=== PATIENT | female | born 1960 | race American Indian/Alaskan Native ===

== ENCOUNTER 2018-11-02 00:56 | Inpatient (IN) | payer MEDICARE, BC ==
[2018-11-02 01:07] VITALS: BMI 42.0
--- NOTE | 2018-11-02 02:37 | ED PDOC ---
HPI: Chest Pain Time Seen by Provider: 11/02/18 01:21 Chief Complaint (Nursing): Chest Pain Chief Complaint (Provider): Chest Pain History Per: Patient History/Exam Limitations: no limitations Onset/Duration Of Symptoms: Days (a few) Additional Complaint(s): 57 years old female with a history of diabetes and hypertension presents to ER for evaluation of chest pain that has been occurring for the past few days. Patient reports associated shortness of breath and decrease exercise tolerance. She states she is unable to walk more than two blocks without becoming out of breath. Patient reports strong family history of cardiac disease. She states her mother with a heart attack in her 40s. Patient reports for the past month she has been having sweats in the middle of the night. PMD: Hannah Savage Photographic Lithographer: Dejan Mccauley Past Medical History Reviewed: Historical Data, Nursing Documentation, Vital Signs Vital Signs: Last Vital Signs Temp 98.5 F 11/02/18 01:14 Pulse 79 11/02/18 01:14 Resp 17 11/02/18 01:14 BP 172/92 H 11/02/18 01:14 Pulse Ox 95 11/02/18 01:14 - Medical History PMH: Diabetes, HTN, Hyperlipidemia - Surgical History Surgical History: No Surg Hx - Family History Family History: States: CAD - Home Medications Home Medications: Ambulatory Orders Medication Instructions Recorded Losartan Potassium 100 mg PO DAILY 11/02/18 MetFORMIN [glucoPHAGE] 1,000 mg PO BID 11/02/18 Simvastatin [Zocor] 20 mg PO DAILY 11/02/18 amLODIPine [Norvasc] 10 mg PO DAILY 11/02/18 - Allergies Allergies/Adverse Reactions: Allergies Allergy/AdvReac Type Severity Reaction Status Date / Time No Known Allergies Allergy Verified 08/04/16 11:05 Review of Systems ROS Statement: Except As Marked, All Systems Reviewed And Found Negative Constitutional: Positive for: Sweats Cardiovascular: Positive for: Chest Pain Respiratory: Positive for: Shortness of Breath Physical Exam - Reviewed Nursing Documentation Reviewed: Yes Vital Signs Reviewed: Yes - Physical Exam Appears: Positive for: Well, No Acute Distress Head Exam: Positive for: ATRAUMATIC, NORMOCEPHALIC Skin: Positive for: Normal Color, Warm, Dry Eye Exam: Positive for: Normal appearance, EOMI, PERRL Neck: Positive for: Normal, Painless ROM, Supple Cardiovascular/Chest: Positive for: Regular Rate, Rhythm. Negative for: Murmur Respiratory: Positive for: Normal Breath Sounds. Negative for: Wheezing Gastrointestinal/Abdominal: Positive for: Normal Exam, Soft. Negative for: Tenderness Back: Positive for: Normal Inspection. Negative for: L CVA Tenderness, R CVA Tenderness Extremity: Positive for: Normal ROM. Negative for: Pedal Edema, Deformity Neurological/Psych: Positive for: Awake, Alert, Oriented (x3) - Laboratory Results Result Diagrams: 11/02/18 02:58 11/02/18 02:58 - ECG ECG Rhythm: Positive for: Sinus Rhythm (with nonspecific ST abnormality) Rate: 85 O2 Sat by Pulse Oximetry: 95 (RA) Pulse Ox Interpretation: Normal Medical Decision Making Medical Decision Making: Time: 0119 A/P: 57 y/o female with a history of hypertension and diabetes presenting with chest pain --Patient has significant cardiac risk factors and significant family history of cardiac disease --Rule out ACS with serial troponins, will require continuous cardiac monitoring ----- Scribe Attestation: Documented by Katelin Spear, acting as a scribe for Brayan Ballard MD. Provider Scribe Attestation: All medical record entries made by the Scribe were at my direction and personally dictated by me. I have reviewed the chart and agree that the record accurately reflects my personal performance of the history, physical exam, medical decision making, and the department course for this patient. I have also personally directed, reviewed, and agree with the discharge instructions and disposition. Disposition - Clinical Impression Clinical Impression: Chest pain - Patient ED Disposition Is Patient to be Admitted: Yes - Disposition Disposition Time: 01:57 Condition: FAIR
[2018-11-02 03:06] LABS: INR 0.9; PROTHROMBIN TIME 10.4 Seconds (9.8-13.1)
[2018-11-02 03:08] LABS: PARTIAL THROMBOPLASTIN TIME 34.6 Seconds (25.6-37.1)
[2018-11-02 03:10] LABS: BLOOD UREA NITROGEN 9 mg/dl (7-17); CALCIUM 9.2 mg/dL (8.4-10.2); GFR NON-AFRICAN AMERICAN > 60
[2018-11-02 03:11] LABS: BASO % 0.5 % (0.0-2.0); EOS # 0.2 K/uL (0.0-0.7); EOS % 3.4 % (0.0-4.0); HEMOGLOBIN 12.3 g/dL (12.0-16.0); LYMPH % 61.5 % (20.0-40.0); MEAN CELL VOLUME 90.5 fl (81.0-99.0); MEAN CORPUSCULAR HEMOGLOBIN 30.9 pg (27.0-31.0); MEAN CORPUSCULAR HGB CONC 34.1 g/dL (33.0-37.0); MEAN PLATELET VOLUME 7.5 fl (7.2-11.7); MONO # 0.6 K/uL (0.0-0.8); MONO % 9.3 % (0.0-10.0); NEUT # 1.6 K/uL (1.8-7.0); NEUT % 25.3 % (50.0-75.0); NRBC % 0.1 % (0.0-0.0); RBC 3.98 Mil/uL (3.80-5.20); RED CELL DISTRIBUTION WIDTH 15.2 % (11.5-14.5); WHITE BLOOD COUNT 6.5 K/uL (4.8-10.8)
[2018-11-02 03:23] LABS: B-TYPE NATRIURETIC PEPTIDE 23.3 pg/ml (0-900)
--- NOTE | 2018-11-02 14:07 | RAD ---
Date of service: 11/02/2018 HISTORY: chest pain COMPARISON: Comparison made with prior chest radiograph 08/04/2016. TECHNIQUE: Chest PA and lateral views FINDINGS: LUNGS: There is a elliptical shaped masslike density seen in the left lateral mid to lower lung field overlying the left anterior 5th rib that measures approximately 2.1 x 1.2 cm. This focus is of uncertain etiology though a a parenchymal mass- neoplasm must be excluded. Recommend follow-up noncontrast CT scan of the chest for further evaluation. PLEURA: No significant pleural effusion identified. No pneumothorax apparent. CARDIOVASCULAR: No aortic atherosclerotic calcification present. Normal cardiac size. No pulmonary vascular congestion. OSSEOUS STRUCTURES: Mild multilevel degenerative spondylosis. VISUALIZED UPPER ABDOMEN: Normal. OTHER FINDINGS: None. IMPRESSION: There is a elliptical shaped masslike density seen in the left lateral mid to lower lung field overlying the left anterior 5th rib that measures approximately 2.1 x 1.2 cm. This focus is of uncertain etiology though a parenchymal mass- neoplasm must be excluded. Recommend follow-up noncontrast CT scan of the chest for further evaluation. Room Charge Nurse Rox informed these findings at approximately 2 p.m. with written down and read back verification.
--- NOTE | 2018-11-02 18:25 | CP.PCM.HP ---
History of Present Illness - History of Present Illness History of Present Illness: CC: Chest Pain History of Present Illness; A 57 years old female with a history of diabetes and hypertension presents to ER for evaluation of chest pain that has been occurring for the past few days. Patient reports associated shortness of breath and decrease exercise tolerance. She states she is unable to walk more than two blocks without becoming out of breath. Patient reports strong family history of cardiac disease. She states her mother with a heart attack in her 40s. Patient reports for the past month she has been having sweats in the middle of the night. Patient chronic smoker and chest x-ray for chest pain showed about 2 cm of left-sided lung mass. Present on Admission - Present on Admission Any Indicators Present on Admission: No Review of Systems - Review of Systems All systems: reviewed and no additional remarkable complaints except Review of Systems: As per HPI Past Patient History - Past Medical History & Family History Past Medical History?: Yes - Past Social History Smoking Status: Current Some Days Smoker Alcohol: Social Drugs: Denies - CARDIAC Hx Hypertension: Yes - PULMONARY Hx Respiratory Disorders: No - NEUROLOGICAL Hx Neurological Disorder: No - HEENT Hx HEENT Problems: No - RENAL Hx Chronic Kidney Disease: No - ENDOCRINE/METABOLIC Hx Endocrine Disorders: Yes Hx Diabetes Mellitus Type 2: Yes - HEMATOLOGICAL/ONCOLOGICAL Hx Blood Disorders: No - INTEGUMENTARY Hx Dermatological Problems: No - MUSCULOSKELETAL/RHEUMATOLOGICAL Hx Musculoskeletal Disorders: No Hx Falls: No - GASTROINTESTINAL Hx Gastrointestinal Disorders: No - GENITOURINARY/GYNECOLOGICAL Hx Genitourinary Disorders: No - PSYCHIATRIC Hx Psychophysiologic Disorder: No Hx Substance Use: No - SURGICAL HISTORY Hx Surgeries: Yes Hx Cholecystectomy: Yes Hx Hysterectomy: Yes Hx Orthopedic Surgery: Yes (right ankle surgery) Other/Comment: multiple cyst removal from right breast,rectum and vulva - ANESTHESIA Hx Anesthesia: Yes Hx Anesthesia Reactions: No Hx Malignant Hyperthermia: No Has any member of the family had a problem w/ anesthesia?: No Meds Allergies/Adverse Reactions: Allergies Allergy/AdvReac Type Severity Reaction Status Date / Time No Known Allergies Allergy Verified 08/04/16 11:05 Physical Exam - Constitutional Appears: Well, No Acute Distress - Head Exam Head Exam: ATRAUMATIC, NORMAL INSPECTION, NORMOCEPHALIC - Eye Exam Eye Exam: EOMI, Normal appearance, PERRL Pupil Exam: NORMAL ACCOMODATION, PERRL - ENT Exam ENT Exam: Mucous Membranes Moist, Normal Exam - Neck Exam Neck exam: Positive for: Normal Inspection - Respiratory Exam Respiratory Exam: Clear to Auscultation Bilateral, NORMAL BREATHING PATTERN - Cardiovascular Exam Cardiovascular Exam: REGULAR RHYTHM, +S1, +S2 - GI/Abdominal Exam GI & Abdominal Exam: Normal Bowel Sounds, Soft. absent: Tenderness - Extremities Exam Extremities exam: Positive for: normal capillary refill, normal inspection - Back Exam Back exam: NORMAL INSPECTION - Neurological Exam Neurological exam: Alert, CN II-XII Intact, Normal Gait, Oriented x3, Reflexes Normal - Psychiatric Exam Psychiatric exam: Normal Affect, Normal Mood - Skin Skin Exam: Dry, Intact, Normal Color, Warm Results - Vital Signs Recent Vital Signs: Last Vital Signs Temp 97.9 F 11/02/18 16:07 Pulse 80 11/02/18 16:07 Resp 18 11/02/18 16:07 BP 142/88 11/02/18 16:07 Pulse Ox 93 L 11/02/18 16:07 - Labs Result Diagrams: 11/02/18 02:58 11/03/18 13:30 Labs: Laboratory Results - last 24 hr 11/02/18 11/02/18 11/02/18 01:30 02:58 02:58 WBC 6.5 RBC 3.98 Hgb 12.3 Hct 36.1 MCV 90.5 MCH 30.9 MCHC 34.1 RDW 15.2 H Plt Count 182 MPV 7.5 Neut % (Auto) 25.3 L Lymph % (Auto) 61.5 H Swisher % (Auto) 9.3 Eos % (Auto) 3.4 Baso % (Auto) 0.5 Neut # (Auto) 1.6 L Lymph # (Auto) 4.0 Swisher # (Auto) 0.6 Eos # (Auto) 0.2 Baso # (Auto) 0.0 PT INR APTT D-Dimer, Quantitative 495 H Sodium 140 Potassium 3.5 L Chloride 103 Carbon Dioxide 27 Anion Gap 14 BUN 9 Creatinine 0.6 L Est GFR ( Amer) > 60 Est GFR (Non-Af Amer) > 60 Random Glucose 185 H Calcium 9.2 Troponin I < 0.0120 NT-Pro-B Natriuret Pep 23.3 11/02/18 11/02/18 02:58 10:00 WBC RBC Hgb Hct MCV MCH MCHC RDW Plt Count MPV Neut % (Auto) Lymph % (Auto) Swisher % (Auto) Eos % (Auto) Baso % (Auto) Neut # (Auto) Lymph # (Auto) Swisher # (Auto) Eos # (Auto) Baso # (Auto) PT 10.4 INR 0.9 APTT 34.6 D-Dimer, Quantitative Sodium Potassium Chloride Carbon Dioxide Anion Gap BUN Creatinine Est GFR ( Amer) Est GFR (Non-Af Amer) Random Glucose Calcium Troponin I < 0.0120 NT-Pro-B Natriuret Pep - Imaging and Cardiology Chest x-ray Status: Report reviewed by me Additional comment: Date of service: 11/02/2018 HISTORY: chest pain COMPARISON: Comparison made with prior chest radiograph 08/04/2016. TECHNIQUE: Chest PA and lateral views FINDINGS: LUNGS: There is a elliptical shaped masslike density seen in the left lateral mid to lower lung field overlying the left anterior 5th rib that measures approximately 2.1 x 1.2 cm. This focus is of uncertain etiology though a a parenchymal mass- neoplasm must be excluded. Recommend follow-up noncontrast CT scan of the chest for further evaluation. PLEURA: No significant pleural effusion identified. No pneumothorax apparent. CARDIOVASCULAR: No aortic atherosclerotic calcification present. Normal cardiac size. No pulmonary vascular congestion. OSSEOUS STRUCTURES: Mild multilevel degenerative spondylosis. VISUALIZED UPPER ABDOMEN: Normal. OTHER FINDINGS: None. IMPRESSION: There is a elliptical shaped masslike density seen in the left lateral mid to lower lung field overlying the left anterior 5th rib that measures approximately 2.1 x 1.2 cm. This focus is of uncertain etiology though a parenchymal mass- neoplasm must be excluded. Recommend follow-up noncontrast CT scan of the chest for further evaluation. Room Charge Nurse Rox informed these findings at approximately 2 p.m. with written down and read back verification. Assessment & Plan (1) Mass of left lung Status: Acute Priority: High (2) Chest pain Status: Acute Priority: Medium (3) Hypertension Status: Chronic (4) Dyslipidemia Status: Chronic - Assessment and Plan (Free Text) Plan: Serial troponin and EKG. Transthoracic echo Aspirin and beta-trish Manager Branch consult CT chest with IV contrast, and PE protocol as d-dimer is high. Continues telemetry monitoring
[2018-11-02] MEDS ORDERED: Sodium Chloride 0.9% 50 ML IV ONE (18:31)
[2018-11-02] MEDS ORDERED: Iodixanol 320 MG/ML 100 ML BOTTLE IV ONE (18:31)
--- NOTE | 2018-11-02 18:41 | CARD ---
APPROVED REPORT Date of service: 11/02/2018 EKG Measurement Heart [id number] <Conclusion> Normal sinus rhythm Possible Left atrial enlargement Otherwise normal ECG
[2018-11-02 19:53] LABS: BARBITURATES, UR NEGATIVE (NEGATIVE); BENZODIAZEPINES, UR NEGATIVE (NEGATIVE); OPIATES, UR NEGATIVE (NEGATIVE); PHENCYCLIDINE, UR NEGATIVE (NEGATIVE)
--- NOTE | 2018-11-03 01:38 | CON ---
DATE: 11/02/2018 REASON FOR CONSULTATION: Chest pain. HISTORY OF PRESENT ILLNESS: The patient is a 57-year-old -[place] female who is a smoker, has history of hypertension and diabetes mellitus, as well as hyperlipidemia, on Cozaar, Zocor, metformin, and amlodipine at home, presented because of chest pain. The patient described that she was awakened from sleep with chest discomfort, which was retrosternal, associated with diaphoresis. The patient stated that she underwent cardiac catheterization a few years ago at [facility] and was told it was okay. The patient has no recurrence of chest pain since her presentation. SOCIAL HISTORY: The patient is a smoker. CURRENT MEDICATIONS: Cozaar 100 mg once a day, metformin 1 gram twice a day, Lipitor 20 mg once a day, Norvasc 10 mg once a day. The patient did receive 162 mg of oral aspirin. REVIEW OF SYSTEMS: No nausea or vomiting. No fever or chills. No dizziness or syncope. PAST MEDICAL HISTORY: Hypertension, diabetes mellitus, hyperlipidemia. PHYSICAL EXAMINATION: GENERAL: The patient is a middle-aged female who does not appear to be in acute distress. VITAL SIGNS: Blood pressure 137/84, heart rate 79, temperature 98.4, respirations 18. HEENT: Normocephalic. NECK: No JVD. CHEST: Clear. HEART: S1 and S2 regular. EXTREMITIES: 1+ pitting edema. LABORATORY DATA: Hemoglobin and hematocrit 12.3 and 36.1. White count and platelet count are within normal limits. Today's SMA-7: Sodium 140, potassium 3.5, chloride 103, CO2 of 27, glucose 185, BUN 9, creatinine 0.6. Two sets of troponins are negative. PT, PTT, and INR are within normal limits. EKG revealed sinus rhythm with nonspecific ST-segment changes. Chest x-ray revealed normal cardiac silhouette with prominent bronchovascular markings. ASSESSMENT: 1. Chest pain, myocardial infarction is ruled out. 2. Hypertension and diabetes mellitus. 3. Hyperlipidemia. 4. Obesity. 5. Rule out underlying congestive heart failure. RECOMMENDATIONS: Continue current Cozaar 100 mg once a day, metformin 1 gram twice a day, Lipitor 20 mg once a day, Norvasc 10 mg once a day, aspirin 81 mg once a day, Plavix 75 mg once a day. Obtain an echocardiographic study, serum D-Dimer as well as urine for drug screen. The patient will eventually need a cardiac catheterization with the possibility of intervention. Seferino Best MD
--- NOTE | 2018-11-03 11:47 | CT ---
Date of service: 11/02/2018 PROCEDURE: CT Chest with contrast (Pulmonary Angiogram) HISTORY: R/O PE, and ? Left Chest Mass COMPARISON: Correlation made with chest radiograph obtained earlier same day. TECHNIQUE: Axial computed tomography images were obtained of the chest in the pulmonary arterial phase of enhancement. Coronal and sagittal reformatted images were created and reviewed. Intravenous contrast dose: 99 cc Visipaque 320 Radiation dose: Total exam DLP = 403.29 mGy-cm. This CT exam was performed using one or more of the following dose reduction techniques: Automated exposure control, adjustment of the mA and/or kV according to patient size, and/or use of iterative reconstruction technique. FINDINGS: Study is somewhat limited by suboptimal opacification of the pulmonary arteries and further limited by morbid obesity. PULMONARY ARTERIES: The visualized pulmonary trunk, right and left main, lobar, segmental and proximal subsegmental branches of the pulmonary arteries are well opacified with no definitive filling defects seen to suggest acute central pulmonary embolus. AORTA: No acute findings. No thoracic aortic aneurysm. No aortic atherosclerotic calcification or mural plaque present. LUNGS: There is an approximately 17.8 mm x 14 mm elliptical shaped soft tissue mass lesion with spiculated borders. This lesion could represent a primary neoplasm. Biopsy are recommended for further evaluation PLEURAL SPACES: Unremarkable. No effusion or pneumothorax. HEART: Heart is mildly enlarged. No significant pericardial effusion. LYMPH NODES: There are a few small nonspecific mediastinal lymph nodes present. No significant hilar adenopathy. Trachea midline and patent with no large central endoluminal lesions. Tiny hiatal hernia. BONES, CHEST WALL: Mild multilevel degenerative spondylosis of the thoracic spine OTHER FINDINGS: Cholecystectomy. IMPRESSION: Limited study. No evidence of acute central pulmonary embolus. 17 mm x 14 mm soft tissue mass lesion with spiculated borders left lower lobe; recommend follow-up biopsy as this lesion is highly suspicious for primary neoplasm.
[2018-11-03 13:59] LABS: BLOOD UREA NITROGEN 11 mg/dl (7-17); CALCIUM 9.4 mg/dL (8.4-10.2); GFR NON-AFRICAN AMERICAN > 60
--- NOTE | 2018-11-04 00:11 | CP.PCM.PN ---
Subjective - Date & Time of Evaluation Date of Evaluation: 11/03/18 Time of Evaluation: 19:25 - Subjective Subjective: Seen and examined at the bed side. No new complaint. Pending TTE result, and Lef lung mass biopsy by IR tomorrow. Patient is chronic smoker, and possible Malignancy. Denies fever or chills. Objective - Vital Signs/Intake and Output Vital Signs (last 24 hours): Temp Pulse Resp BP Pulse Ox 98.0 F 74 18 133/79 93 L 11/03/18 20:27 11/03/18 21:29 11/03/18 20:27 11/03/18 21:29 11/03/18 20:27 - Medications Medications: Current Medications Acetaminophen (Tylenol 325mg Tab) 650 mg PO Q6 PRN PRN Reason: Headache Last Admin: 11/03/18 13:37 Dose: 650 mg Amlodipine Besylate (Norvasc) 10 mg PO DAILY [facility] Last Admin: 11/03/18 08:31 Dose: 10 mg Aspirin (Aspirin Chewable) 81 mg PO DAILY [facility] Last Admin: 11/03/18 08:26 Dose: 81 mg Atorvastatin Calcium (Lipitor) 20 mg PO HS [facility] Last Admin: 11/03/18 21:29 Dose: 20 mg Losartan Potassium (Cozaar) 100 mg PO DAILY [facility] Last Admin: 11/03/18 08:29 Dose: 100 mg Metoprolol Tartrate (Lopressor) 25 mg PO Q12 [facility] Last Admin: 11/03/18 21:29 Dose: 25 mg - Labs Labs: 11/02/18 02:58 11/03/18 13:30 PT 10.4 Seconds (9.8-13.1) 11/02/18 02:58 INR 0.9 11/02/18 02:58 APTT 34.6 Seconds (25.6-37.1) 11/02/18 02:58 - Constitutional Appears: Well, No Acute Distress - Head Exam Head Exam: ATRAUMATIC, NORMAL INSPECTION, NORMOCEPHALIC - Eye Exam Eye Exam: EOMI, Normal appearance, PERRL Pupil Exam: NORMAL ACCOMODATION, PERRL - ENT Exam ENT Exam: Mucous Membranes Moist, Normal Exam - Neck Exam Neck Exam: Full ROM, Normal Inspection. absent: Lymphadenopathy - Respiratory Exam Respiratory Exam: Clear to Ausculation Bilateral, NORMAL BREATHING PATTERN - Cardiovascular Exam Cardiovascular Exam: REGULAR RHYTHM, +S1, +S2. absent: Murmur - GI/Abdominal Exam GI & Abdominal Exam: Soft, Normal Bowel Sounds. absent: Tenderness - Extremities Exam Extremities Exam: Full ROM, Normal Capillary Refill, Normal Inspection. absent: Joint Swelling, Pedal Edema - Back Exam Back Exam: NORMAL INSPECTION - Neurological Exam Neurological Exam: Alert, Awake, CN II-XII Intact, Normal Gait, Oriented x3 - Psychiatric Exam Psychiatric exam: Normal Affect, Normal Mood - Skin Skin Exam: Dry, Intact, Normal Color, Warm Assessment and Plan (1) Chest pain Status: Acute (2) Mass of left lung Status: Acute (3) Morbid obesity Status: Acute (4) Dyslipidemia Status: Chronic (5) Hypertension Status: Chronic - Assessment and Plan (Free Text) Plan: Pending TTE result CT guided lung bipsy by IR requested. C/W Current Care
--- NOTE | 2018-11-04 00:25 | PN ---
DATE: 11/03/2018 SUBJECTIVE: The patient denied any chest pain. No reported hemoptysis. PHYSICAL EXAMINATION: VITAL SIGNS: Blood pressure 151/94, heart rate 99, temperature 97.7, and respiration 18. HEENT: Normocephalic. CHEST: Clear. HEART: S1 and S2 regular. EXTREMITIES: No edema. LABORATORY DATA: Urine drug screen is negative. Today's SMA-7 was within normal limits except for a glucose of 193. Four sets of troponin are negative. Chest CT/angio, no evidence of acute central pulmonary embolus. A 17 mm x 14 mm soft tissue mass lesion with spiculated border, left lower lobe. ASSESSMENT: 1. Chest pain, myocardial infarction is ruled out. 2. Left lower lobe lung mass measuring 17 x 14 mm. 3. Hypertension. 4. Diabetes mellitus. 5. Hyperlipidemia. 6. Obesity. RECOMMENDATIONS: Continue current aspirin 81 mg once a day, Cozaar at 100 mg once daily, Lipitor 20 mg once a day, Lopressor 25 mg twice a day. Norvasc 10 mg once a day. We will discontinue Plavix. The patient will have pulmonary evaluation and will possibly be referred for lung biopsy, and for that reason, Plavix will be discontinued. The patient will also undergo echocardiographic study tomorrow. Seferino Best MD
[2018-11-04 08:04] VITALS: RESP 20
[2018-11-04 15:51] VITALS: BP 155/79; PULSE 99; TEMP 98.6; O2SAT 96
--- NOTE | 2018-11-04 18:17 | CARD ---
APPROVED REPORT Date of service: 11/04/2018 EXAM: Two-dimensional and M-mode echocardiogram with Doppler and color Doppler. Other Information Quality : GoodRhythm : NSR INDICATION Chest Pain 2D DIMENSIONS IVSd1.31 (0.7-1.1cm)LVDd5.25 (3.9-5.9cm) LVOT Diameter2.15 (1.8-2.4cm)PWd0.99 (0.7-1.1cm) IVSs1.32 (0.8-1.2cm)LVDs4.19 (2.5-4.0cm) FS (%) 20.1 %PWs1.00 (0.8-1.2cm) M-Mode DIMENSIONS Left Atrium (MM)4.41 (2.5-4.0cm)IVSd0.76 (0.7-1.1cm) Aortic Root2.88 (2.2-3.7cm)LVDd5.76 (4.0-5.6cm) Aortic Cusp Exc.1.79 (1.5-2.0cm)PWd1.06 (0.7-1.1cm) IVSs1.12 cmFS (%) 28 % LVDs4.15 (2.0-3.8cm)PWs1.26 cm Aortic Valve AoV Peak Ltodbeam935.3cm/sAoV VTI26.2cmAO Peak GR.8mmHg LVOT Peak Nsrrasfw49.9cm/sLVOT VTI20.72cmAO Mean GR.5mmHg GISELLA (VMAX)1.73dr9AJX (VTI)1.20cm2 Mitral Valve MV E Bdaxfshz80.7cm/sMV DECEL ECQI116stGJ A Aclaqjvl39.1cm/s MV DBJ46udM/A ratio0.9MVA (PHT)3.18cm2 TDI Lateral E' Peak V9.94cm/sMedial E' Peak V9.13cm/sE/Lateral E'7.9 E/Medial E'8.6 Tricuspid Valve TR Peak Zhltazrt658pz/sRAP JNZMNFDC34itAeJX Peak Gr.20mmHg EWTN00pdTj LEFT VENTRICLE The left ventricle is normal size. There is normal left ventricular wall thickness. The left ventricular systolic function is normal. The estimated ejection fraction is 55-60% No regional wall motion abnormalities noted.. Transmitral Doppler flow pattern is Grade I-abnormal relaxation pattern. No left ventricle thrombus noted on this study. There is no ventricular septal defect visualized. There is no left ventricular aneurysm. There is no mass noted in the left ventricle. RIGHT VENTRICLE The right ventricle is normal size. There is normal right ventricular wall thickness. The right ventricular systolic function is normal. ATRIA The left atrium is mildly dilated. The right atrium size is normal. The interatrial septum is intact with no evidence for an atrial septal defect. AORTIC VALVE The aortic valve is normal in structure. No aortic regurgitation is present. There is no aortic valvular stenosis. There is no aortic valvular vegetation. MITRAL VALVE The mitral valve is normal in structure. There is no evidence of mitral valve prolapse. There is no mitral valve stenosis. There is mild mitral valve regurgitation noted. TRICUSPID VALVE The tricuspid valve is normal in structure. There is mild tricuspid valve regurgitation noted. RVSP is calculated at 25 mm Hg. There is no tricuspid valve prolapse or vegetation. There is no tricuspid valve stenosis. PULMONIC VALVE The pulmonary valve is normal in structure. There is no pulmonic valvular regurgitation. There is no pulmonic valvular stenosis. GREAT VESSELS The aortic root is normal in size. The ascending aorta is normal in size. The pulmonary artery is normal. The IVC is normal in size and collapses >50% with inspiration. PERICARDIAL EFFUSION There is no pericardial effusion. There is no pleural effusion. <Conclusion> The estimated ejection fraction is 55-60% Transmitral Doppler flow pattern is Grade I-abnormal relaxation pattern. The left atrium is mildly dilated. There is mild mitral valve regurgitation noted. There is mild tricuspid valve regurgitation noted. RVSP is calculated at 25 mm Hg.
--- NOTE | 2018-11-04 22:04 | PN ---
DATE: 11/04/2018 FOLLOWUP SUBJECTIVE: The patient denies any chest pain. No reported hemoptysis. PHYSICAL EXAMINATION: VITAL SIGNS: Blood pressure 155/79, heart rate 99, temperature 98.6, and respiration 20. HEENT: Normocephalic. CHEST: Clear. HEART: S1 and S2, regular. ABDOMEN: Soft. EXTREMITIES: No edema. ASSESSMENT: 1. Chest pain, myocardial infarction is ruled out. 2. Left lower lobe lung mass, measuring 17 x 14 mm. 3. Hypertension and hyperlipidemia. 4. Diabetes mellitus. RECOMMENDATIONS: Continue current Cozaar 100 mg once daily, Lipitor 20 mg once daily, Lopressor 25 mg twice a day, Norvasc 10 mg once a day, aspirin is on hold in anticipation of lung biopsy. Seferino Best MD
--- NOTE | 2018-11-05 10:06 | CP.PCM.DIS ---
Provider - Provider Date of Admission: 11/04/18 00:06 Attending physician: Richard Tarango MD Consults: 11/02/18 03:58 Cardiology Consult Routine Comment: Consulting Provider: Dejan Mccauley Consulting Physician: Dejan Mccauley Reason for Consult: chest pain 11/03/18 11:57 Pulmonology Consult Routine Comment: Consulting Provider: Nickolas Arnold Consulting Physician: Nickolas Arnold Reason for Consult: nodule left mid lung Time Spent in preparation of Discharge (in minutes): 30 Diagnosis - Discharge Diagnosis (1) Mass of left lung Status: Acute Priority: High (2) Chest pain Status: Acute Priority: Medium (3) Hypertension Status: Chronic (4) Dyslipidemia Status: Chronic (5) Morbid obesity Status: Acute Priority: Medium Hospital Course - Lab Results Lab Results: Most Recent Lab Values WBC 6.5 K/uL (4.8-10.8) 11/02/18 02:58 RBC 3.98 Mil/uL (3.80-5.20) 11/02/18 02:58 Hgb 12.3 g/dL (12.0-16.0) 11/02/18 02:58 Hct 36.1 % (34.0-47.0) 11/02/18 02:58 MCV 90.5 fl (81.0-99.0) 11/02/18 02:58 MCH 30.9 pg (27.0-31.0) 11/02/18 02:58 MCHC 34.1 g/dL (33.0-37.0) 11/02/18 02:58 RDW 15.2 % (11.5-14.5) H 11/02/18 02:58 Plt Count 182 K/uL (130-400) 11/02/18 02:58 MPV 7.5 fl (7.2-11.7) 11/02/18 02:58 Neut % (Auto) 25.3 % (50.0-75.0) L 11/02/18 02:58 Lymph % (Auto) 61.5 % (20.0-40.0) H 11/02/18 02:58 [place] % (Auto) 9.3 % (0.0-10.0) 11/02/18 02:58 Eos % (Auto) 3.4 % (0.0-4.0) 11/02/18 02:58 Baso % (Auto) 0.5 % (0.0-2.0) 11/02/18 02:58 Neut # (Auto) 1.6 K/uL (1.8-7.0) L 11/02/18 02:58 Lymph # (Auto) 4.0 K/uL (1.0-4.3) 11/02/18 02:58 [place] # (Auto) 0.6 K/uL (0.0-0.8) 11/02/18 02:58 Eos # (Auto) 0.2 K/uL (0.0-0.7) 11/02/18 02:58 Baso # (Auto) 0.0 K/uL (0.0-0.2) 11/02/18 02:58 PT 10.4 Seconds (9.8-13.1) 11/02/18 02:58 INR 0.9 11/02/18 02:58 APTT 34.6 Seconds (25.6-37.1) 11/02/18 02:58 D-Dimer, Quantitative 495 ng/mlDDU (0-230) H 11/02/18 01:30 Sodium 138 mmol/l (132-148) 11/03/18 13:30 Potassium 4.3 MMOL/L (3.6-5.0) 11/03/18 13:30 Chloride 102 mmol/L (98-107) 11/03/18 13:30 Carbon Dioxide 25 mmol/L (22-30) 11/03/18 13:30 Anion Gap 15 (10-20) 11/03/18 13:30 BUN 11 mg/dl (7-17) 11/03/18 13:30 Creatinine 0.7 mg/dl (0.7-1.2) 11/03/18 13:30 Est GFR ( Amer) > 60 11/03/18 13:30 Est GFR (Non-Af Amer) > 60 11/03/18 13:30 Random Glucose 193 mg/dL (65-105) H 11/03/18 13:30 Calcium 9.4 mg/dL (8.4-10.2) 11/03/18 13:30 Troponin I < 0.0120 ng/mL (0.00-0.120) 11/03/18 05:21 NT-Pro-B Natriuret Pep 23.3 pg/ml (0-900) 11/02/18 02:58 Urine Opiates Screen Negative (NEGATIVE) 11/02/18 19:26 Urine Methadone Screen Negative (NEGATIVE) 11/02/18 19:26 Ur Barbiturates Screen Negative (NEGATIVE) 11/02/18 19:26 Ur Phencyclidine Scrn Negative (NEGATIVE) 11/02/18 19:26 Ur Amphetamines Screen Negative (NEGATIVE) 11/02/18 19:26 U Benzodiazepines Scrn Negative (NEGATIVE) 11/02/18 19:26 U Oth Cocaine Metabols Negative (NEGATIVE) 11/02/18 19:26 U Cannabinoids Screen Negative (NEGATIVE) 11/02/18 19:26 Discharge Exam - Head Exam Head Exam: ATRAUMATIC, NORMAL INSPECTION, NORMOCEPHALIC - Eye Exam Eye Exam: EOMI, Normal appearance, PERRL Pupil Exam: NORMAL ACCOMODATION, PERRL - GI/Abdominal Exam GI & Abdominal Exam: Normal Bowel Sounds - Rectal Exam Rectal Exam: NORMAL INSPECTION - Exam Exam: Circumcision, NORMAL INSPECTION External exam: NORMAL EXTERNAL EXAM Speculum exam: NORMAL SPECULUM EXAM Bimanual exam: NORMAL BIMANUAL EXAM - Neurological Exam Neurological exam: Alert, CN II-XII Intact, Normal Gait, Oriented x3, Reflexes Normal - Psychiatric Exam Psychiatric exam: Normal Affect, Normal Mood - Skin Skin Exam: Dry, Intact, Normal Color, Warm Discharge Plan - Follow Up Plan Condition: FAIR Disposition: HOME/ ROUTINE Instructions: Hypertension (DC), Hypertension (GEN) Additional Instructions: call for Ct guided left lung biopsy. to be scheduled for next week. call Marcia [phone]. Follow up with Dr Tarango next week. [phone].
--- NOTE | 2018-11-06 22:09 | PQF ---
PROVIDER RESPONSE TEXT: chest pain or unable to be further specified.. Not a pericardial effusion REVIEWER QUERY TEXT: Symptom Underlying Cause Please document the possible underlying diagnosis causing the patient?s documented symptom(s) of ches t pain or unable to be further specified. The patient's Clinical Indicators include: Cardiology note: The patient described that she was awakened from sleep with chest discomfort, which was retrosternal, associated with diaphoresis. SOB and decreased exercise tolerance. PMH: HTN, DM II, Hyperlipidemia, smoker, obesity Family history strong for cardiac disease. Mother with an NH in her 40s EKG:Normal sinus rhythm . Possible Left atrial enlargement ECHO: EF 55-60%, Transmitral Doppler flow pattern is Grade I abnormal relaxation pattern, mild MR, TR Troponins negative Rx: ASA, Lopressor, Plavix, Lipitor, Cozaar, Norvasc Query created by: Rebecca Williamson on 11/05/2018 6:34 AM Electronically signed by: Seferino Best MD 11/06/2018 10:06 PM
--- NOTE | 2018-11-06 22:09 | PQF ---
PROVIDER RESPONSE TEXT: BMI of 41.8 REVIEWER QUERY TEXT: Documentation Clarification Your help is requested in clarifying the following clinical documentation, if you can please further specify in the medical record and discharge summary. Obesity is documented in the medical record. Two codes are needed: 1 for the obesity diagnosis and 1 for the BMI. Would you please document the BMI of 41.8 if in agreement or other explanation. EMR: Patient is listed as 5'9", 283 pounds with a BMI of 41.8 The patient's Clinical Indicators include: Cardiology note: The patient described that she was awakened from sleep with chest discomfort, which was retrosternal, associated with diaphoresis. SOB and decreased exercise tolerance. PMH: HTN, DM II, Hyperlipidemia, smoker, obesity [facility] Query created by: Rebecca Williamson on 11/05/2018 6:37 AM Electronically signed by: Seferino Best MD 11/06/2018 10:06 PM
== END 2018-11-04 18:10 | disposition home or self-care (01) | DRG 313 ==
LOC: H.ER 00:56 → H.ERHOLD 01:57 → H.TEL 03:51 → OBSVTOIN 11-04 00:06
PROVIDERS: ADMIT Internal Medicine; ATTEND Internal Medicine
DX: R07.89 Other chest pain (principal); Z68.41 Body mass index [BMI] 40.0-44.9, adult; E11.9 Type 2 diabetes mellitus without complications; F17.200 Nicotine dependence, unspecified, uncomplicated; R91.8 Other nonspecific abnormal finding of lung field; Z82.49 Family history of ischemic heart disease and other diseases of the circulatory system; E78.5 Hyperlipidemia, unspecified; I10 Essential (primary) hypertension; Z98.61 Coronary angioplasty status; Z79.84 Long term (current) use of oral hypoglycemic drugs; E66.01 Morbid (severe) obesity due to excess calories

== ENCOUNTER 2018-11-11 09:43 | Day surgery (SDC) | payer BC ==
[2018-11-11 10:04] VITALS: BMI 43.6
[2018-11-11] MEDS ORDERED: Lactated Ringer's 1,000 ML IV ONE (11:15)
--- NOTE | 2018-11-11 12:41 | CP.SDSHP ---
Same Day Surgery H & P - History Proposed Procedure: CT guided biopsy of left lung nodule - Allergies Allergies: Allergies No Known Allergies Allergy (Verified 11/11/18 10:05) - Physical Exam Vital Signs: Vital Signs 11/11/18 11/11/18 10:30 11:03 Temperature 97.9 F Pulse Rate 87 87 Respiratory 18 Rate Blood Pressure 140/78 O2 Sat by Pulse 100 Oximetry Mental Status: Alert & Oriented x3 Neuro: WNL Heart: WNL Lungs: WNL - Impression Impression: Pt with a left lower lobe lung nodule referred for biopsy. Plan CT guided biopsy. Informed consent and risk of pneumothorax requring chest tube explained to the patient. Pt. Evaluated Today:Candidate for Anesthesia & Procedure: Yes (ASA 3 Malampati 3) - Date & Time Date: 11/11/18 Time: 12:15 Short Stay Discharge - Short Stay Discharge Admitting Diagnosis/Reason for Visit: R91.8 Disposition: HOME/ ROUTINE
[2018-11-11] MEDS ORDERED: Lidocaine 1% Inj (20ml) ONE ×2 (12:43→12:56)
[2018-11-11] MEDS ORDERED: Midazolam 2 MG/2 ML VIAL ONE ×2 (12:53→13:05)
[2018-11-11] MEDS ORDERED: Lactated Ringer's 1,000 ML IV SCH (13:45)
--- NOTE | 2018-11-11 14:58 | CT ---
PROCEDURE: Date of procedure: 11/11/2018 Procedure: 1. CT-guided lung mass biopsy, CPT [address] Guidance for biopsy, [address] Radiation: 3577.28 MGy-cm Medications: The patient was sedated by anesthesiologist along with physiologic monitoring. HISTORY: Left lower lobe lung nodule TECHNIQUE: Following informed consent and procedure time out, the patient was placed prone on the CT table and noncontrast CT scan was performed. Noncontrast CT scan confirmed the presence of a 1.4 cm left lung nodule. A skin localizer was placed on the patient's LEFT back and a repeat CT scan was performed. The skin was marked, prepped, and draped in the usual sterile fashion. After the skin was anesthetized with lidocaine and the patient sedated by the anesthesiologist, a 20 gauge core needle was advanced percutaneously under direct CT guidance into the mass. Upon confirmation of needle position, Two 20-gauge core specimens were obtained and sent for routine pathology. The needle was removed and a xeroform dressing was applied. A post biopsy CT scan showed no pneumothorax. IMPRESSION: CT guided core biopsy left lung nodule.
--- NOTE | 2018-11-11 14:59 | RAD ---
Date of service: 11/11/2018 HISTORY: s/p lung biopsy COMPARISON: No prior. TECHNIQUE: 1 view obtained. FINDINGS: LUNGS: No active pulmonary disease. PLEURA: No pneumothorax following left lung biopsy. There is no pleural effusion. CARDIOVASCULAR: No aortic atherosclerotic calcification present. Normal cardiac size. No pulmonary vascular congestion. OSSEOUS STRUCTURES: No significant abnormalities. VISUALIZED UPPER ABDOMEN: Normal. OTHER FINDINGS: None. IMPRESSION: No pneumothorax following left lung biopsy.
[2018-11-11 15:16] VITALS: TEMP 97.9
[2018-11-11 15:43] VITALS: BP 141/52; PULSE 83; RESP 18; O2SAT 100
--- NOTE | 2018-11-12 11:48 | PCM.SURG1 ---
Surgeon's Initial Post Op Note - Surgeon's Notes Surgeon: Hernandez Stoll MD Spread Cutter: NONE Type of Anesthesia: IV Sedation Pre-Operative Diagnosis: LUng nodule Operative Findings: CT showed a 14 mm left lower lobe lung nodule Post-Operative Diagnosis: Lung nodule Operation Performed: CT guided biopsy Specimen/Specimens Removed: 20-gauge core x 2 Estimated Blood Loss: EBL {In ML}: 0 Blood Products Given: N/A Drains Used: No Drains Post-Op Condition: Good Date of Surgery/Procedure: 11/11/18 Time of Surgery/Procedure: 12:55
== END 2018-11-11 16:05 | disposition home or self-care (01) ==
LOC: H.OPSURG 09:43
PROVIDERS: ATTEND Internal Medicine
DX: R91.8 Other nonspecific abnormal finding of lung field (principal); I25.10 Atherosclerotic heart disease of native coronary artery without angina pectoris; E11.9 Type 2 diabetes mellitus without complications; E78.5 Hyperlipidemia, unspecified; I10 Essential (primary) hypertension
CPT/HCPCS: 32405; 71045; 82948; 88305; J2250; J3010; J7120